=== PATIENT | male | born 1970 | race African-American/Black ===

== ENCOUNTER 2016-08-29 07:12 | Emergency (ER) | payer OTHER ==
[~2016-08-29] VITALS: Ht 172.7 cm; Wt 77.1 kg
[2016-08-29 07:45] LABS: BASO % 0 % (0-3); EOS % 0 % (0-3); HEMATOCRIT 44.9 % (39.0-53.0); HEMOGLOBIN 15.5 g/dL (13.0-17.5); LYMPH # 1.2 x10^3/uL (1.0-4.8); LYMPH % 14 % (24-48); MEAN CORPUSCULAR HEMOGLOBIN 32 pg (25-35); MEAN CORPUSCULAR HGB CONC 35 g/dL (31-37); MEAN CORPUSCULAR VOLUME 93 fL (79-100); MONO % 2 % (0-9); NEUT % 83 % (31-73); PLATELET COUNT 255 x10^3/uL (140-400); RED BLOOD COUNT 4.81 x10^6/uL (4.30-5.70); RED CELL DISTRIBUTION WIDTH 12.6 % (11.5-14.5); WHITE BLOOD COUNT 8.5 x10^3/uL (4.0-11.0)
[2016-08-29] MEDS ORDERED: ONDANSETRON PF 4 MG/2 ML VIAL. IV ONE (07:45)
[2016-08-29] MEDS ORDERED: LIDO:MAALOX:DONNATAL 1:1:1 15 ML SINGLE DOSE SWSW ONE (07:45)
[2016-08-29] MEDS ORDERED: IV NORMAL SALINE 1000ML BAG 1,000 ML IV ONE (07:45)
[2016-08-29] MEDS: FENTANYL PF 100 MCG/2 ML VIAL. IV PRN ×2 (07:49→08:49)
--- NOTE | 2016-08-29 07:54 | PHYS DOC ---
Past Medical History Past Medical History: No Pertinent History Past Surgical History: No Surgical History Additional Information: 1/2 ppd Alcohol Use: Occasionally Drug Use: Marijuana Adult General Chief Complaint Chief Complaint: CHEST PAIN-CARDIAC NATURE HPI HPI Patient is a 46 year old male who presents with chest pain & abdominal pain. The patient reports constant severe substernal/epigastric burning pain since 2100 last evening while at rest. Pain is nonradiating, associated with dry cough, shortness of breath, vomiting x 3, diarrhea. Denies fevers/chills, diaphoresis, hematemesis, hematochezia/melena, dysuria/hematuria, lower extremity pain/swelling. No history of previous similar symptoms. Nonsmoker, occasional alcohol use. No known past medical history, PCP is Dr. Reynoso bc of prior back injury. Reports history of CAD & CVA in his mother. Review of Systems Review of Systems Constitutional: Denies fever or chills Eyes: Denies change in visual acuity HENT: Denies nasal congestion or sore throat Respiratory: Reports cough & shortness of breath Cardiovascular: Reports chest pain, denies edema GI: Reports abdominal pain, nausea, vomiting, & diarrhea, denies bloody stools : Denies dysuria or hematuria Musculoskeletal: Denies back pain or joint pain Integument: Denies rash or skin lesions Neurologic: Denies headache, focal weakness or sensory changes Current Medications Current Medications Current Medications Medications (Trade) Dose Ordered Sig/Marilu Start Time Stop Time Status Last Admin Dose Admin Fentanyl Citrate (Fentanyl 2ml Vial) 50 mcg PRN Q15MIN PRN 08/29/16 07:45 08/30/16 07:44 08/29/16 08:49 50 MCG Multi-Ingredient Mouthwash/Gargle (Gi Cocktail Single Dose) 15 ml 1X ONCE 08/29/16 07:45 08/29/16 07:46 DC 08/29/16 07:48 15 ML Ondansetron HCl (Zofran) 4 mg 1X ONCE 08/29/16 07:45 08/29/16 07:46 DC 08/29/16 07:44 4 MG Sodium Chloride (Iv Sodium Chloride 0.9% 1000ml Bag) 1,000 ml @ 1,000 mls/hr 1X ONCE 08/29/16 07:45 08/29/16 08:44 DC 08/29/16 07:43 1,000 MLS/HR Allergies Allergies Allergies Coded Allergies Type Severity Reaction Last Updated Verified No Known Drug Allergies 08/29/16 No Physical Exam Physical Exam Constitutional: Well developed, well nourished, no acute distress, non-toxic appearance. HENT: Normocephalic, atraumatic, bilateral external ears normal, oropharynx moist, nose normal. Eyes: conjunctiva normal, no discharge. Neck: supple, no stridor. Cardiovascular: RRR, no murmurs, no edema. Lungs & Thorax: LCTAB, no wheezing, no respiratory distress. reproducible tenderness with palpation over the sternum. Abdomen: soft, epigastric & generalized upper abdominal tenderness without rebound/guarding, no masses or pulsatile masses, nondistended. Skin: Warm, dry, no erythema, no rash. Back: No tenderness, no CVA tenderness. Extremities: No tenderness, no edema. no lower extremity pain/swelling. Neurologic: Alert and oriented X 3, no focal deficits noted. Psychologic: Affect normal, judgement normal, mood normal. Current Patient Data Vital Signs Vital Signs Date Time Temp Pulse Resp B/P Pulse Ox O2 Delivery O2 Flow Rate FiO2 08/29/16 09:23 84 16 138/78 97 Room Air 08/29/16 07:23 98.3 98.3 Lab Values Laboratory Tests Test 08/29/16 07:15 08/29/16 08:35 White Blood Count 8.5x10^3/uL (4.0-11.0) Red Blood Count 4.81x10^6/uL (4.30-5.70) Hemoglobin 15.5g/dL (13.0-17.5) Hematocrit 44.9% (39.0-53.0) Mean Corpuscular Volume 93fL (79-100) Mean Corpuscular Hemoglobin 32pg (25-35) Mean Corpuscular Hemoglobin Concent 35g/dL (31-37) Red Cell Distribution Width 12.6% (11.5-14.5) Platelet Count 255x10^3/uL (140-400) Neutrophils (%) (Auto) 83% (31-73) H Lymphocytes (%) (Auto) 14% (24-48) L Monocytes (%) (Auto) 2% (0-9) Eosinophils (%) (Auto) 0% (0-3) Basophils (%) (Auto) 0% (0-3) Neutrophils # (Auto) 7.0x10^3uL (1.8-7.7) Lymphocytes # (Auto) 1.2x10^3/uL (1.0-4.8) Monocytes # (Auto) 0.2x10^3/uL (0.0-1.1) Eosinophils # (Auto) 0.0x10^3/uL (0.0-0.7) Basophils # (Auto) 0.0x10^3/uL (0.0-0.2) Sodium Level 134mmol/L (136-145) L Potassium Level 3.9mmol/L (3.5-5.1) Chloride Level 97mmol/L (98-107) L Carbon Dioxide Level 24mmol/L (21-32) Anion Gap 13 (6-14) Blood Urea Nitrogen 7mg/dL (8-26) L Creatinine 1.0mg/dL (0.7-1.3) Estimated GFR (Cockcroft-Gault) 98.2 BUN/Creatinine Ratio 7 (6-20) Glucose Level 145mg/dL (70-99) H Calcium Level 9.9mg/dL (8.5-10.1) Total Bilirubin 0.5mg/dL (0.2-1.0) Aspartate Amino Transferase (AST) 17U/L (15-37) Alanine Aminotransferase (ALT) 28U/L (16-63) Alkaline Phosphatase 79U/L (46-116) Troponin I Quantitative < 0.017ng/mL (0.000-0.055) FB-Lfw-D-Type Natriuretic Peptide 148pg/mL (0-124) H Total Protein 8.9g/dL (6.4-8.2) H Albumin 4.5g/dL (3.4-5.0) Albumin/Globulin Ratio 1.0 (1.0-1.7) Lipase 111U/L (73-393) Urine Collection Type Unknown Urine Color Yellow Urine Clarity Clear Urine pH 8.0 Urine Specific Harrison 1.020 Urine Protein Negativemg/dL (NEG-TRACE) Urine Glucose (UA) 100mg/dL (NEG) Urine Ketones (Stick) 15mg/dL (NEG) Urine Blood Negative (NEG) Urine Nitrite Negative (NEG) Urine Bilirubin Negative (NEG) Urine Urobilinogen Dipstick 0.2mg/dL (0.2 mg/dL) Urine Leukocyte Esterase Negative (NEG) Urine RBC 3-5/HPF (0-2) Urine WBC 1-4/HPF (0-4) Urine Squamous Epithelial Cells Occ/LPF Urine Bacteria 0/HPF (0-FEW) Urine Mucus Mod/LPF Laboratory Tests 08/29/16 07:15 Laboratory Tests 08/29/16 07:15 EKG EKG interpreted by me: NSR rate 77, no acute ST/T wave changes, normal intervals, no ectopy.[] Radiology/Procedures Radiology/Procedures PROCEDURE: ACUTE ABDOMEN SERIES Acute abdomen series with chest, 08/29/2016: History: Chest pain and vomiting Gas is present in large and small bowel without significant bowel distention. There are a few small scattered air-fluid levels. No free air seen in the abdomen. There is no evidence of organomegaly or abnormal abdominal calcification. Scattered spurs are present in the spine. The heart size is normal. The lungs are clear. There is no evidence of pleural fluid. IMPRESSION: Several small scattered air-fluid levels in the GI tract suggests a mild ileus. DICTATED and SIGNED BY: JESUS PELAEZ MD DATE: 08/29/16 0852 PROCEDURE: ABDOMEN LTD Right upper quadrant abdominal ultrasound, 08/29/2016: History: Nausea and vomiting, right upper quadrant pain The gallbladder is within normal limits in size. There is no sonographic evidence of cholelithiasis. No gallbladder wall thickening is seen. The common hepatic duct is of normal caliber. No hepatic abnormality is detected. The pancreas was obscured by overlying bowel. The visualized portions of the right kidney are unremarkable. IMPRESSION: No significant abnormality is detected. DICTATED and SIGNED BY: JESUS PELAEZ MD DATE: 08/29/16 0909 [] Course & Med Decision Making Course & Med Decision Making Pertinent Labs and Imaging studies reviewed. (See chart for details) The patient presents with chest pain & abdominal pain. Gave IV fluids, zofran, pain medication, GI cocktail. He received aspirin en route by EMS. Obtained labs, EKG, XR. Mild ileus on acute abdominal series, RUQ US negative. he felt better after treatment, no further emesis. His pain is well controlled, passing gas/stool, no history of abdominal surgeries. He agrees with plan for discharge. Recommend rest, PO hydration with sips of clear liquid, prescriptions for zofran & norco, no drinking alcohol or driving while taking norco. Follow up with Dr. Reynoso in 2-3 days if not improving. Come back for high fever, severe pain, uncontrolled vomiting, no bowel movement/gas, any otherwise worsening condition. Discharged home in stable & improved condition. [] Dragon Disclaimer Dragon Disclaimer This electronic medical record was generated, in whole or in part, using a voice recognition dictation system. Departure Departure Impression: Primary Impression: Abdominal pain Disposition: 01 HOME, SELF-CARE Condition: IMPROVED Referrals: NO PCP (PCP) Patient Instructions: Ileus, Nausea and Vomiting, [id number] Additional Instructions: You were seen in the emergency department today for abdominal pain. Your symptoms improved here & your labs were normal. The x-ray showed ileus which is slow movement through your bowels. Please rest, drink fluids to stay hydrated, take zofran for nausea, use norco for severe pain. no drinking alcohol or driving while taking norco. Follow up with your primary care doctor in 2-3 days if not improving. There is a chance that you could develop more severe bowel obstruction so please come back for high fever, severe pain, uncontrolled vomiting, not having bowel movements or not passing gas, any otherwise worsening condition. Scripts Hydrocodone/Apap 5-325 ([place] 5-325 Tablet)1 Each Tablet1 Tab PO PRN Q6HRS PRN PAIN #10 TAB Prov:JAMSHID CHANDRA MD 08/29/16 Ondansetron (Zofran Odt)4 Mg Tab.rapdis1 Tab SL Q8HRS PRN NAUSEA #10 TAB Prov:JAMSHID CHANDRA MD 08/29/16 JAMSHID CHANDRA MD Aug 29, 2016 07:54
[2016-08-29 07:56] LABS: CALCIUM 9.9 mg/dL (8.5-10.1); GFR 98.2; POTASSIUM 3.9 mmol/L (3.5-5.1)
[2016-08-29 08:02] LABS: ALBUMIN 4.5 g/dL (3.4-5.0); TOTAL BILIRUBIN 0.5 mg/dL (0.2-1.0); TOTAL PROTEIN 8.9 g/dL (6.4-8.2)
--- NOTE | 2016-08-29 08:55 | RAD ---
Acute abdomen series with chest, 08/29/2016: History: Chest pain and vomiting Gas is present in large and small bowel without significant bowel distention. There are a few small scattered air-fluid levels. No free air seen in the abdomen. There is no evidence of organomegaly or abnormal abdominal calcification. Scattered spurs are present in the spine. The heart size is normal. The lungs are clear. There is no evidence of pleural fluid. IMPRESSION: Several small scattered air-fluid levels in the GI tract suggests a mild ileus.
--- NOTE | 2016-08-29 08:56 | EKG ---
[facility] [address] [place] [id number] Test Date: 2016-08-29 Test Time: 07:19:24 Pat Name: CHENCHO JANE Department: Room: Gender: M Paid Intern: : 1970 Requested By: JAMSHID CHANDRA Order Number: [id number] Reading MD: Measurements Intervals Nelson Rate: 77 P: 64 TN: 142 QRS: 86 QRSD: 86 T: 31 QT: 400 QTc: 455 Interpretive Statements SINUS RHYTHM LEFT ATRIAL ABNORMALITY ABNORMAL ECG RI6.01 No previous ECG available for comparison
[2016-08-29 09:05] LABS: BILIRUBIN,URINE NEGATIVE (NEG); GLUCOSE,URINE 100 mg/dL (NEG); NITRITE,URINE NEGATIVE (NEG); PROTEIN,URINE NEGATIVE (NEG-TRACE); UROBILINOGEN,URINE 0.2 mg/dL (0.2 mg/dL)
--- NOTE | 2016-08-29 09:12 | RAD ---
Right upper quadrant abdominal ultrasound, 08/29/2016: History: Nausea and vomiting, right upper quadrant pain The gallbladder is within normal limits in size. There is no sonographic evidence of cholelithiasis. No gallbladder wall thickening is seen. The common hepatic duct is of normal caliber. No hepatic abnormality is detected. The pancreas was obscured by overlying bowel. The visualized portions of the right kidney are unremarkable. IMPRESSION: No significant abnormality is detected.
[2016-08-29 09:22] LABS: BACTERIA,URINE 0 /HPF (0-FEW); SQUAMOUS EPITHELIAL CELL,UR OCC /LPF
[2016-08-29 09:23] VITALS: BP 138/78
[2016-08-29] MEDS ORDERED: HYDR-971 PO (09:29)
[2016-08-29] MEDS ORDERED: ONDA4TAB10 SL (09:29)
== END 2016-08-29 10:01 | disposition home or self-care (01) ==
LOC: ER 07:12
DX: R10.13 Epigastric pain (principal); R10.11 Right upper quadrant pain; R10.84 Generalized abdominal pain; R06.02 Shortness of breath; R05 Cough; R11.2 Nausea with vomiting, unspecified; R19.7 Diarrhea, unspecified; F12.10 Cannabis abuse, uncomplicated; F17.200 Nicotine dependence, unspecified, uncomplicated
CPT/HCPCS: 36415; 74022; 76705; 80053; 81001; 83690; 83880; 84484; 85027; 93005; 96361; 96374; 96375; 96376; 99285; J2405; J3010; J7030